=== PATIENT | female | born 1985 | race Two or more races ===

== ENCOUNTER 2018-11-24 18:47 | Inpatient (IN) | payer OTHER ==
[~2018-11-24] VITALS: Ht 152.4 cm; Wt 56.7 kg
[2018-11-24] MEDS ORDERED: ZANTAC150 M3 PO (19:25)
[2018-11-24] MEDS ORDERED: PRENATAL TABLE1 EAC2 PO (19:25)
== END 2018-11-26 16:08 | disposition home or self-care (01) | DRG 833 ==
LOC: LDR 18:47
PROVIDERS: ADMIT Obstetrics & Gynecology Maternal & Fetal Medicine
PROC: 4A1HXCZ Monitoring of Products of Conception, Cardiac Rate, External Approach (ICD-10-PCS; principal; 2018-11-24)
PROC: BY4FZZZ Ultrasonography of Third Trimester, Single Fetus (ICD-10-PCS; 2018-11-24)
DX: O60.03 Preterm labor without delivery, third trimester (principal); Z34.83 Encounter for supervision of other normal pregnancy, third trimester

== ENCOUNTER 2018-11-30 09:03 | Outpatient (CLI) | payer OTHER ==
[~2018-11-30 09:03] MED LIST: PRENATAL TABLE1 EAC2 PO; ZANTAC150 M3 PO
== END 2018-11-30 10:09 | disposition home or self-care (01) ==
LOC: NST 09:03
DX: Z34.83 Encounter for supervision of other normal pregnancy, third trimester (principal)

== ENCOUNTER 2018-12-04 10:05 | Inpatient (IN) | payer OTHER ==
[~2018-12-04] VITALS: Ht 152.4 cm; Wt 1.4 kg
== END 2018-12-06 13:26 | disposition home or self-care (01) | DRG 807 ==
LOC: LDR 10:05 → OB/GYN 16:48
PROVIDERS: ADMIT Obstetrics & Gynecology Maternal & Fetal Medicine
PROC: 10E0XZZ Delivery of Products of Conception, External Approach (ICD-10-PCS; principal; 2018-12-04)
PROC: 4A1HXCZ Monitoring of Products of Conception, Cardiac Rate, External Approach (ICD-10-PCS; 2018-12-04)
DX: O60.14X0 Preterm labor third trimester with preterm delivery third trimester, not applicable or unspecified (principal); Z37.0 Single live birth; Z3A.31 31 weeks gestation of pregnancy; O42.913 Preterm premature rupture of membranes, unspecified as to length of time between rupture and onset of labor, third trimester